=== PATIENT | female | born 1975 | race Caucasian/White ===

== ENCOUNTER 2017-11-27 14:24 | Emergency (ER) | payer OTHER ==
[2017-11-27 14:34] VITALS: O2SAT 99
[2017-11-27] MEDS ORDERED: Sodium Chloride 0.9% 1,000 ML IV STA (14:56)
--- NOTE | 2017-11-27 14:58 | ED PDOC ---
Arrival/HPI - General Chief Complaint: Abdominal Pain Time Seen by Provider: 11/27/17 14:46 Historian: Patient - History of Present Illness Narrative History of Present Illness (Text): 11/27/17 14:54 A 42 year old female, whose past medical history includes pancreatitis x 2(last time was a year ago) and tubal ligation, presents to the emergency department complaining of non-radiating epigastric pain starting yesterday. Patient reports a year ago she was diagnosed with pancreatitis and [place] [facility] [place] full workup during admission. After workup, it was uncertain as to how she developed the condition, however she was told it may have been caused from stress. Patient denied at the time, and now, any EtOH abuse. She was found to not have any gallstones. Patient denies fever, chills, nausea, vomiting, diarrhea, any urinary symptoms, or any other complaints at this time. PMD clinic Past Medical History - Provider Review Nursing Documentation Reviewed: Yes - Cardiac Hx Cardiac Disorders: No - Pulmonary Hx Respiratory Disorders: No - Neurological Hx Neurological Disorder: No - HEENT Hx HEENT Disorder: No - Renal Hx Renal Disorder: No - Endocrine/Metabolic Hx Endocrine Disorders: No - Hematological/Oncological Hx Blood Disorders: No - Integumentary Hx Dermatological Disorder: No - Musculoskeletal/Rheumatological Hx Musculoskeletal Disorders: No - Gastrointestinal Hx Gastrointestinal Disorders: Yes Hx Pancreatitis: Yes - Genitourinary/Gynecological Hx Genitourinary Disorders: No - Psychiatric Hx Psychophysiologic Disorder: No Hx Substance Use: No - Surgical History Hx Tubal Ligation: Yes - Anesthesia Hx Anesthesia: Yes Family/Social History - Physician Review Nursing Documentation Reviewed: Yes Family/Social History: No Known Family HX Smoking Status: Current Some Days Smoker Hx Alcohol Use: No Hx Substance Use: No Allergies/Home Meds Allergies/Adverse Reactions: Allergies No Known Allergies Allergy (Verified 03/26/16 04:02) Home Medications: Home Meds Medication Instructions Recorded Confirmed No Known Home Med 11/27/17 11/27/17 Review of Systems - Physician Review All systems were reviewed & negative as marked: Yes - Review of Systems Constitutional: absent: Fatigue, Fevers Respiratory: absent: SOB, Cough Cardiovascular: absent: Chest Pain, Palpitations Gastrointestinal: Abdominal Pain. absent: Diarrhea, Nausea, Vomiting Genitourinary Female: absent: Dysuria, Frequency, Hematuria Musculoskeletal: absent: Arthralgias, Back Pain, Neck Pain Skin: absent: Rash, Pruritis, Skin Lesions Neurological: absent: Headache, Dizziness Physical Exam Vital Signs Temp Pulse Resp BP Pulse Ox 11/27/17 14:29 98.3 F 76 17 101/65 99 Temperature: Afebrile Blood Pressure: Normal Pulse: Regular Respiratory Rate: Normal Appearance: Positive for: Well-Appearing, Non-Toxic, Comfortable Pain Distress: None Mental Status: Positive for: Alert and Oriented X 3 - Systems Exam Head: Present: Atraumatic, Normocephalic Pupils: Present: PERRL Extroacular Muscles: Present: EOMI Conjunctiva: Present: Normal. No: Icteric Mouth: Present: Moist Mucous Membranes Neck: Present: Normal Range of Motion. No: MIDLINE TENDERNESS Respiratory/Chest: Present: Clear to Auscultation, Good Air Exchange. No: Respiratory Distress, Accessory Muscle Use Cardiovascular: Present: Regular Rate and Rhythm, Normal S1, S2. No: Murmurs Abdomen: Present: Other (negative Shah's sign). No: Tenderness, Distention, Peritoneal Signs, Rebound, Guarding, McBurney's Point Tender, Mass/Organomegaly Back: Present: Normal Inspection. No: CVA Tenderness, Midline Tenderness Upper Extremity: Present: Normal Inspection. No: Cyanosis, Edema Lower Extremity: Present: Normal Inspection. No: Edema Neurological: Present: GCS=15, CN II-XII Intact, Speech Normal, Motor Func Grossly Intact, Normal Sensory Function Skin: Present: Warm, Dry, Normal Color. No: Rashes Psychiatric: Present: Alert, Oriented x 3, Normal Insight, Normal Concentration Medical Decision Making ED Course and Treatment: 11/27/17 14:57 Plan : - IV - IVF NS bolus - Pepcid IV - Labs Labs reviewed : wbc 15, lipase 449, rest of labs wnl. On reevaluation, patient denies any abdominal pain or nausea. On exam, patient remains awake alert and oriented 3 in no acute distress. Abdomen soft and nontender, no rebound or guarding. Based on history, exam and diagnostic results plan will be for outpatient follow up. Advised to follow up with primary care physician or GI referral provided in 1-2 days without fail. Return to the emergency room at any time for any new or worsening symptoms. Patient states she fully agrees with and understands discharge instructions. States that she agrees with the plan and disposition. Verbalized and repeated discharge instructions and plan. I have given the patient opportunity to ask any additional questions. - Lab Interpretations Lab Results: 11/27/17 15:29 11/27/17 15:29 Lab Results 11/27/17 15:29: Sodium 143, Potassium 4.1, Chloride 108 H, Carbon Dioxide 25, Anion Gap 14, BUN 14, Creatinine 0.6 L, Est GFR ( Amer) > 60, Est GFR ( Non-Af Amer) > 60, Random Glucose 84, Calcium 9.1, Total Bilirubin 0.2, AST 20, ALT 21, Alkaline Phosphatase 49, Total Protein 7.1, Albumin 3.9, Globulin 3.2, Albumin/Globulin Ratio 1.2, Lipase 449 H 11/27/17 15:29: WBC 15.1 H, RBC 4.28, Hgb 13.3, Hct 39.0, MCV 91.1, MCH 31.1, MCHC 34.1, RDW 13.5, Plt Count 280, MPV 10.2, Gran % 82.0 H, Lymph % (Auto) 11.6 L, Jerome % (Auto) 5.6, Eos % (Auto) 0.7 L, Baso % (Auto) 0.1, Gran # 12.36 H , Lymph # (Auto) 1.8, Jerome # (Auto) 0.9 H, Eos # (Auto) 0.1, Baso # (Auto) 0.02 - Medication Orders Current Medication Orders: Discontinued Medications Famotidine (Pepcid) 20 mg IVP STAT STA Stop: 11/27/17 14:57 Last Admin: 11/27/17 15:23 Dose: 20 mg IVP Administration Document 11/27/17 15:23 [facility] (Rec: 11/27/17 15:23 [facility]-[id number]) Charges for Administration # of IVP Administrations 1 Sodium Chloride (Sodium Chloride 0.9%) 1,000 mls @ 1,000 mls/hr IV .Q1H STA Stop: 11/27/17 15:55 Last Admin: 11/27/17 15:23 Dose: 1,000 mls/hr eMAR Start Stop Document 11/27/17 15:23 [facility] (Rec: 11/27/17 15:23 [facility]-[id number]) Intravenous Solution Start Date 11/27/17 Start Time 15:23 End Date 18 End time 16:23 Total Infusion Time 60 - PA / SOCIAL WORKER AIDE / Resident Statement MD/ has reviewed & agrees with the documentation as recorded. - Scribe Statement The provider has reviewed the documentation as recorded by the Davina Segura Provider Scribe Provider Scribe Attestation: All medical record entries made by the Heatheribcarina were at my direction and personally dictated by me. I have reviewed the chart and agree that the record accurately reflects my personal performance of the history, physical exam, medical decision making, and the department course for this patient. I have also personally directed, reviewed, and agree with the discharge instructions and disposition. Disposition/Present on Arrival - Present on Arrival Any Indicators Present on Arrival: No History of DVT/PE: No History of Uncontrolled Diabetes: No Urinary Catheter: No History of Decub. Ulcer: No History Surgical Site Infection Following: None - Disposition Have Diagnosis and Disposition been Completed?: Yes Diagnosis: Abdominal pain Disposition: HOME/ ROUTINE Disposition Time: 16:00 Patient Plan: Discharge Patient Problems: Current Active Problems Problem Status Onset Abdominal pain Acute Condition: GOOD Discharge Instructions (ExitCare): Acute Abdomen (Belly Pain) Additional Instructions: Thank you for letting us take care of you today. You were treated for abdominal pain, mild pancreatitis. The emergency medical care you received today was directed at your acute symptoms. Bowel rest, drink plenty of fluids x 24 hours, then progress diet slowly with crackers, jello, if you can tolerate eating without eating, continue to slowly advance diet. Return to the Emergency Department if your symptoms worsen, do not improve, or if you have any other problems. Please contact your doctor in 1-2 days for re-evaluation and follow up / or call one of the physicians/clinics you have been referred to that are listed on the Patient Visit Information form that is included in your discharge packet. Bring any paperwork you were given at discharge with you along with any medications you are taking to your follow up visit. Our treatment cannot replace ongoing medical care by a primary care provider (PCP) outside of the emergency department. Thank you for allowing the [facility] team to be part of your care today. Referrals: Corbin Dozier DO [Staff Provider] - Follow up with [facility] [place] - Follow up with primary Forms: [employer] (Portuguese), WORK NOTE
[2017-11-27 15:35] LABS: BASO # 0.02 K/mm3 (0.0-2.0); BASO % 0.1 % (0.0-3.0); EOS # 0.1 (0.0-0.7); EOS % 0.7 % (1.5-5.0); GRAN # 12.36 (1.4-6.5); HEMOGLOBIN 13.3 g/dL (12.0-16.0); LYMPH # 1.8 (1.2-3.4); LYMPH % 11.6 % (22.0-35.0); MEAN CELL VOLUME 91.1 fl (80.0-105.0); MEAN CORPUSCULAR HEMOGLOBIN 31.1 pg (25.0-35.0); MEAN CORPUSCULAR HGB CONC 34.1 g/dl (31.0-37.0); MEAN PLATELET VOLUME 10.2 fl (7.0-11.0); MONO # 0.9 (0.1-0.6); MONO % 5.6 % (1.0-6.0); RBC 4.28 10^6/uL (3.5-6.1); RED CELL DISTRIBUTION WIDTH 13.5 % (11.5-14.5); WHITE BLOOD COUNT 15.1 10^3/ul (4.5-11.0)
[2017-11-27 15:45] LABS: ALB/GLOB RATIO 1.2 (1.1-1.8); ALBUMIN 3.9 g/dL (3.0-4.8); ALT/SGPT 21 U/L (7-56); AST/SGOT 20 U/L (14-36); BLOOD UREA NITROGEN 14 mg/dL (7-21); CALCIUM 9.1 mg/dL (8.4-10.5); GFR NON-AFRICAN AMERICAN > 60; LIPASE 449 U/L (23-300)
[2017-11-27 16:31] VITALS: BP 126/79; PULSE 70; RESP 16; TEMP 9802
--- NOTE | 2017-11-28 21:38 | CARD ---
APPROVED REPORT Date of service: 11/27/2017 EKG Measurement Heart [id number] <Conclusion> Poor data quality, interpretation may be adversely affected Normal sinus rhythm Low voltage QRS Borderline ECG
== END 2017-11-27 16:30 | disposition home or self-care (01) ==
LOC: ED 14:24
DX: R10.13 Epigastric pain (principal)
CPT/HCPCS: 80053; 83690; 85025; 93005; 96361; 96374; 99283; J7030